=== PATIENT | male | born 1975 | race Caucasian/White ===

== ENCOUNTER 2017-01-12 04:34 | Emergency (ER) | payer OTHER ==
[~2017-01-12] VITALS: Ht 180.3 cm; Wt 70.0 kg
[~2017-01-12 04:34] MED LIST: BUPR300T36 PO; CHLO25CA9 PO; FLUO40CA PO; LAMO25TA PO; QUET200T27 PO; TRAZ150T65 PO
[2017-01-12 04:40] VITALS: Ht 180.3 cm; Wt 70.0 kg
--- NOTE | 2017-01-12 04:48 | ERA ---
ER Documentation Chief Complaint Date/Time DATE: 01/12/17 TIME: 04:48 Chief Complaint Not feeling well HPI The patient is a 41-year-old male, presenting to the ER because he is not feeling well after he has been doing amphetamine for the last week. He also had some bad news about his ex- and children. He denies auditory, visual hallucination, homicidal, suicidal ideation. He denies headache, neck pain, chest pain, dyspnea, abdominal pain, vomiting, dysuria, diarrhea, constipation. He smokes and drinks and does illegal drug Past medical history: Bipolar disorder, depression, anxiety, asthma Past surgical history: Right lower extremity, left shoulder ROS All systems reviewed and are negative except as per history of present illness. Medications Home Meds Reported Medications Chlordiazepoxide* (Chlordiazepoxide*) 25 Mg Capsule, 50 MG PO Q6 Y for CONTROL WITHDRAWAL SYMPTOMS, CAP 07/11/16 Trazodone Hcl* (Trazodone Hcl*) 150 Mg Tablet, 150 MG PO QHS, #30 TAB 07/10/16 Quetiapine Fumarate* (Quetiapine Fumarate*) 200 Mg Tablet, 200 MG PO HS, TAB 07/10/16 Fluoxetine Hcl* (Fluoxetine Hcl*) 40 Mg Capsule, 40 MG PO DAILY, CAP 07/10/16 Lamotrigine* (Lamotrigine*) 25 Mg Tablet, 25 MG PO QID, TAB 07/10/16 Bupropion Hcl* (Bupropion XL*) 300 Mg Tab.sr.24h, 300 MG PO DAILY, TAB.SA 07/10/16 Allergies Allergies: Coded Allergies: No Known Allergy (Unverified , 07/10/16) PMhx/Soc History of Surgery: Yes (RLE fracture repair ) Anesthesia Reaction: No Hx Neurological Disorder: No Hx Respiratory Disorders: No Hx Cardiac Disorders: No Hx Psychiatric Problems: Yes (hx bipolar/depression/anxiety) Hx Miscellaneous Medical Probl: No Hx Alcohol Use: Yes (last drink approx 12 hours ago) Hx Substance Use: No Hx Tobacco Use: Yes Physical Exam Vitals Vital Signs Date Time Temp Pulse Resp B/P Pulse Ox O2 Delivery O2 Flow Rate FiO2 01/12/17 05:09 94 20 95 21 01/12/17 04:52 98.1 112 22 119/89 95 Room Air 01/12/17 04:40 97.3 105 18 124/77 96 Physical Exam Const: No acute distress. Head: Atraumatic. Eyes: Normal Conjunctiva. ENT: Normal External Ears, Nose and Mouth. Neck: Full range of motion. No meningismus. Resp: Mild expiratory wheezes Cardio: Regular rate and rhythm, no murmurs. Abd: Soft, non distended, normal bowel sounds, non tender. Skin: No petechiae or rashes. Back: No midline or flank tenderness. Ext: No cyanosis, or edema. Neur: Awake and alert. No focal deficit Psych: Normal Mood and Affect. Results 24 hrs Current Medications Medications (Trade) Dose Ordered Sig/Grisel Route PRN Reason Start Time Stop Time Status Last Admin Dose Admin Levalbuterol (Xopenex Neb) 1.25 mg ONCE ONCE N 01/12/17 05:00 01/12/17 05:01 DC 01/12/17 05:08 Ipratropium [place] (Atrovent 0.02% (Neb)) 0.5 mg ONCE ONCE N 01/12/17 05:00 01/12/17 05:01 DC 01/12/17 05:08 Lorazepam (Ativan) 1 mg ONCE ONCE PO 01/12/17 05:00 01/12/17 05:01 DC 01/12/17 05:01 Procedures/MDM MEDICAL MAKING DECISION: The patient is a 41-year-old male, presenting with acute bronchospasm, acute amphetamine abuse. He was treated with Xopenex 1.25 mg and Atrovent 0.5 mg nebulized and Ativan 1 mg p.o. with good response. The differential diagnoses considered include but are not limited to pneumonia, substance abuse, anxiety attack, panic attack, decompensated psychiatric illness Departure Diagnosis: Primary Impression: Substance abuse Additional Impression: Bronchospasm NEVILLE RODRIGUEZ MD Jan 12, 2017 04:48
[2017-01-12 04:52] VITALS: TEMP 98.1
[2017-01-12 05:00] VITALS: BP 131/90; PULSE 104; RESP 18
[2017-01-12] MEDS ORDERED: IPRATROPIUM (NEB) 0.5 MG/2.5 ML AMP HHN ONE (05:00)
[2017-01-12] MEDS ORDERED: LEVALBUTEROL (NEB) 1.25 MG/0.5 ML AMP HHN ONE (05:00)
[2017-01-12] MEDS ORDERED: LORAZEPAM 1 MG TAB PO ONE (05:00)
[2017-01-12] MEDS ORDERED: HYDR-845 PO (05:33)
--- NOTE | 2017-01-12 05:34 | RADRPT ---
PROCEDURE: CHEST - 1 VIEW CLINICAL INDICATION: 41-year-old male with cough. TECHNIQUE: A single frontal semi-upright view of the chest was performed portably. The images wer e reviewed on a PACS workstation. COMPARISON: None. FINDINGS: The cardiomediastinal silhouette has a normal appearance. There is no evidence for an infiltrate. There is no evidence for congestive heart failure. There is no evidence for pneumothorax. The osseou s structures are intact. IMPRESSION: No evidence for active cardiopulmonary disease. .Nirav Oliva MD, MD Date Time Electronically viewed and signed by .Nirav Oliva MD, on 01/12/2017 05:34 .M/
== END 2017-01-12 05:46 | disposition home or self-care (01) ==
LOC: E/R 04:34
DX: F15.10 Other stimulant abuse, uncomplicated (principal); J98.01 Acute bronchospasm; Z87.891 Personal history of nicotine dependence
CPT/HCPCS: 71010; 94664; Z7502; Z7610; 99283

== ENCOUNTER 2017-08-21 01:55 | Emergency (ER) | payer OTHER ==
[~2017-08-21] VITALS: Ht 180.3 cm; Wt 70.4 kg
[~2017-08-21 01:55] MED LIST changes: +HYDR-845 PO
[2017-08-21 01:59] VITALS: Ht 180.3 cm; Wt 70.4 kg
--- NOTE | 2017-08-21 03:00 | RADRPT ---
PROCEDURE: XR Foot Bilateral. CLINICAL INDICATION: foot pain TECHNIQUE: AP, lateral and oblique views of the bilateral feet were obtained. The images were rev iewed on a PACS workstation. COMPARISON: None. FINDINGS: Left foot: The bones of the foot appear intact, with no evidence of fracture, dislocation, or subluxation. The joint spaces are preserved. Bone mineralization is normal. No significant soft tissue swelling is seen. There is a small inferior calcaneal spur. Right foot: Intramedullary jose luis is seen in the tibia. The bones of the foot appear intact, with no evidence of fracture, dislocation, or subluxation. The joint spaces are preserved. Bone mineralization is normal. No significant soft tissue swelling is seen. IMPRESSION: No acute osseous abnormality. Small left plantar calcaneal spur. Physician Bre Date Time Electronically viewed and signed by Physician Bre on 08/21/2017 03:00 /
--- NOTE | 2017-08-21 03:03 | ERD ---
ER Documentation Chief Complaint Chief Complaint pain bilat feet HPI 42-year-old male presents here to emergency department for complaints of bilateral foot pain, patient walks a lot, has been having blisters in both feet. Patient's complaint of pain, now is complaining of pain in the left heel. Patient described the pain as throbbing pain, 6/10 scale, as was upon walking. Patient denies any fever chills. Patient denies any direct trauma in affected area. ROS All systems reviewed and are negative except as per history of present illness. Medications Home Meds Active Scripts Hydroxyzine Hcl* (Atarax*) 50 Mg Tab, 50 MG PO TID for ANXIETY, #14 TAB Prov:NEVILLE RODRIGUEZ MD 01/12/17 Reported Medications Chlordiazepoxide* (Chlordiazepoxide*) 25 Mg Capsule, 50 MG PO Q6 Y for CONTROL WITHDRAWAL SYMPTOMS, CAP 07/11/16 Trazodone Hcl* (Trazodone Hcl*) 150 Mg Tablet, 150 MG PO QHS, #30 TAB 07/10/16 Quetiapine Fumarate* (Quetiapine Fumarate*) 200 Mg Tablet, 200 MG PO HS, TAB 07/10/16 Fluoxetine Hcl* (Fluoxetine Hcl*) 40 Mg Capsule, 40 MG PO DAILY, CAP 07/10/16 Lamotrigine* (Lamotrigine*) 25 Mg Tablet, 25 MG PO QID, TAB 07/10/16 Bupropion Hcl* (Bupropion XL*) 300 Mg Tab.sr.24h, 300 MG PO DAILY, TAB.SA 07/10/16 Allergies Allergies: Coded Allergies: No Known Allergy (Unverified , 07/10/16) PMhx/Soc History of Surgery: Yes (RLE fracture repair ) Anesthesia Reaction: No Hx Neurological Disorder: No Hx Respiratory Disorders: No Hx Cardiac Disorders: No Hx Psychiatric Problems: Yes (hx bipolar/depression/anxiety) Hx Miscellaneous Medical Probl: No Hx Alcohol Use: Yes (last drink approx 12 hours ago) Hx Substance Use: No Hx Tobacco Use: Yes Smoking Status: Current every day smoker FmHx Family History: No coronary disease, No diabetes, No other Physical Exam Vitals Vital Signs Date Time Temp Pulse Resp B/P Pulse Ox O2 Delivery O2 Flow Rate FiO2 08/21/17 01:59 97.3 102 18 128/84 97 Physical Exam GENERAL: The patient is well developed and appropriate for usual state of health, in no apparent distress. CHEST: Clear to auscultation bilaterally. There are no rales, wheezes or rhonchi. HEART: Regular rate and rhythm. No murmurs, clicks, rubs or gallops. No S3 or S4. ABDOMEN: Soft, nontender and nondistended. Good bowel sounds. No rebound or guarding. No gross peritonitis. No gross organomegaly or masses. No Spencer sign or McBurney point tenderness. BACK: No midline or flank tenderness. EXTREMITIES: Noted blisters in bilateral foot, no swelling noted no deformity noted, able to do full range of motion with the joints without any restriction. Equal pulses bilaterally. There is no peripheral clubbing, cyanosis or edema. No focal swelling or erythema. Full range of motion. Grossly neurovascularly intact. NEURO: Alert and oriented. Cranial nerves 2-12 intact. Motor strength in all 4 extremities with 5/5 strength. Sensation grossly intact. Normal speech and gait. SKIN: There is no apparent rash or petechia. The skin is warm and dry. HEMATOLOGIC AND LYMPHATIC: There is no evidence of excessive bruising or lymphedema. No gross cervical, axillary, or inguinal lymphadenopathy. Results 24 hrs PROCEDURE: XR Foot Bilateral. CLINICAL INDICATION: foot pain TECHNIQUE: AP, lateral and oblique views of the bilateral feet were obtained. The images were reviewed on a PACS workstation. COMPARISON: None. FINDINGS: Left foot: The bones of the foot appear intact, with no evidence of fracture, dislocation, or subluxation. The joint spaces are preserved. Bone mineralization is normal. No significant soft tissue swelling is seen. There is a small inferior calcaneal spur. Right foot: Intramedullary jose luis is seen in the tibia. The bones of the foot appear intact, with no evidence of fracture, dislocation, or subluxation. The joint spaces are preserved. Bone mineralization is normal. No significant soft tissue swelling is seen. IMPRESSION: No acute osseous abnormality. Small left plantar calcaneal spur. Physician Bre Date Time Electronically viewed and signed by Physician Bre on 08/21/2017 03: 00 CS/ CC: BEATA DIEHL NP Procedures/MDM Medical decision making: Patient symptoms was likely is consistent with foot pain caused by possible overuse, patient also has a left heel calcaneal spur that may be worsening the pain, also has blisters of the foot from walking too much. Patient does not have any symptoms of any septic arthritis, no symptoms of any fractures. No deformity is noted. No symptoms of any neurovascular compromise. Prescription was given for ibuprofen, tramadol, is advised to follow-up with primary care doctor in 2-3 days for reevaluation of symptoms, rest the foot, patient was advised to return to emergency department for any worsening symptoms. Disposition: Home. Stable. Departure Diagnosis: Primary Impression: Foot pain Laterality: bilateral Qualified Code: M79.671 - Pain in both feet Additional Impressions: Blister of foot Encounter type: initial encounter Laterality: unspecified laterality Qualified Code: S90.829A - Blister of foot, unspecified laterality, initial encounter Calcaneal spur of left foot Condition: Stable Patient Instructions: Blister, Heel Spur BEATA DIEHL NP Aug 21, 2017 03:03
[2017-08-21] MEDS ORDERED: TRAM50TA2 PO (03:17)
[2017-08-21] MEDS ORDERED: IBUP-1542 PO (03:17)
== END 2017-08-21 03:50 | disposition home or self-care (01) ==
LOC: FTE 01:55
DX: M77.32 Calcaneal spur, left foot (principal); R23.8 Other skin changes; F17.210 Nicotine dependence, cigarettes, uncomplicated; M79.671 Pain in right foot
CPT/HCPCS: 73630; Z7502

== ENCOUNTER 2017-09-01 00:14 | Emergency (ER) | payer OTHER ==
[~2017-09-01] VITALS: Ht 180.3 cm; Wt 70.4 kg
[~2017-09-01 00:14] MED LIST changes: +IBUP-1542 PO; +TRAM50TA2 PO
[2017-09-01 00:24] VITALS: Ht 180.3 cm; Wt 70.4 kg
[2017-09-01] MEDS ORDERED: SOD CHLORIDE 0.9% 1,000 ML IV STA (01:23)
[2017-09-01] MEDS ORDERED: IBUP-1542 PO (02:05)
[2017-09-01 02:24] LABS: BASOPHIL # 0.1 10^3/ul (0.0-0.1); BASOPHILS % 1.8 % (0.0-2.0); EOSINOPHILS # 0.1 10^3/ul (0.0-0.5); EOSINOPHILS % 3.3 % (0.0-7.0); HEMATOCRIT 35.5 % (42.0-52.0); HEMOGLOBIN 12.6 g/dl (14.0-18.0); LYMPHOCYTES # 1.2 10^3/ul (0.8-2.9); LYMPHOCYTES % 35.2 % (15.0-51.0); MEAN CORPUSCULAR HEMOGLOBIN 34.5 pg (29.0-33.0); MEAN CORPUSCULAR HGB CONC 35.5 g/dl (32.0-37.0); MEAN CORPUSCULAR VOLUME 97.3 fl (82.0-101.0); MEAN PLATELET VOLUME 8.9 fl (7.4-10.4); MONOCYTE # 0.4 10^3/ul (0.3-0.9); MONOCYTES % 11.3 % (0.0-11.0); NEUTROPHIL # 1.6 10^3/ul (1.6-7.5); NEUTROPHILS % 48.1 % (39.0-77.0); PLATELET COUNT 258 10^3/UL (140-415); RED BLOOD COUNT 3.65 10^6/ul (4.70-6.10); RED CELL DISTRIBUTION WIDTH 13.2 % (11.5-14.5); WHITE BLOOD COUNT 3.4 10^3/ul (4.8-10.8)
[2017-09-01 02:39] LABS: ALBUMIN 4.3 g/dl (3.3-4.9); ALBUMIN/GLOBULIN RATIO 1.65; BILIRUBIN,INDIRECT 0.7 mg/dl (0-1.1); BILIRUBIN,TOTAL 0.7 mg/dl (0.2-1.3); CALCIUM 8.7 mg/dl (8.4-10.2); CREATININE 0.94 mg/dl (0.61-1.24); POTASSIUM 3.9 mmol/L (3.5-5.1); TOTAL PROTEIN 6.9 g/dl (6.1-8.1)
[2017-09-01] MEDS ORDERED: OXYCODONE/ACETAMINOPHEN (5/325) TAB PO ONE (03:00)
--- NOTE | 2017-09-01 03:04 | ERD ---
ER Documentation Chief Complaint Chief Complaint fatigue,dizzy,&nauseous x 2-3 days,(+)ETOH odor HPI 42-year-old homeless man presents with "not feeling well" he denies pain but states he feels weak as well as not feeling well. Symptoms are vague but denies chest pain or shortness of breath, no fevers or chills, no vomiting or diarrhea. Later while here he did complain of left lower leg pain and requested analgesics. She denies suicidal or homicidal ideation. ROS All systems reviewed and are negative except as per history of present illness. Medications Home Meds Active Scripts Ibuprofen* (Ibuprofen*) 600 Mg Tablet, 600 MG PO Q8 for PAIN AND/OR INFLAMMATION , #30 TAB Prov:MICHELLE JEAN-BAPTISTE MD 09/01/17 Tramadol HCl (Tramadol HCl) 50 Mg Tablet, 50 MG PO Q6, #20 TAB Prov:BEATA DIEHL NP 08/21/17 Ibuprofen* (Motrin*) 600 Mg Tab, 600 MG PO Q6H Y for PAIN AND OR ELEVATED TEMP, #30 TAB Prov:BEATA DIEHL NP 08/21/17 Hydroxyzine Hcl* (Atarax*) 50 Mg Tab, 50 MG PO TID for ANXIETY, #14 TAB Prov:NEVILLE RODRIGUEZ MD 01/12/17 Reported Medications Chlordiazepoxide* (Chlordiazepoxide*) 25 Mg Capsule, 50 MG PO Q6 Y for CONTROL WITHDRAWAL SYMPTOMS, CAP 07/11/16 Trazodone Hcl* (Trazodone Hcl*) 150 Mg Tablet, 150 MG PO QHS, #30 TAB 07/10/16 Quetiapine Fumarate* (Quetiapine Fumarate*) 200 Mg Tablet, 200 MG PO HS, TAB 07/10/16 Fluoxetine Hcl* (Fluoxetine Hcl*) 40 Mg Capsule, 40 MG PO DAILY, CAP 07/10/16 Lamotrigine* (Lamotrigine*) 25 Mg Tablet, 25 MG PO QID, TAB 07/10/16 Bupropion Hcl* (Bupropion XL*) 300 Mg Tab.sr.24h, 300 MG PO DAILY, TAB.SA 07/10/16 Allergies Allergies: Coded Allergies: No Known Allergy (Unverified , 07/10/16) PMhx/Soc Psychiatric illness History of Surgery: Yes (R. leg surgery - [place] 2006, L. Shoulder surgery 2006) Anesthesia Reaction: No Hx Neurological Disorder: No (denies) Hx Respiratory Disorders: Yes (asthma) Hx Cardiac Disorders: No (denies) Hx Psychiatric Problems: Yes (depression) Hx Miscellaneous Medical Probl: No Hx Alcohol Use: Yes (+/- 1pint harpreet / Vodka / day. Saturday08/31/17) Hx Substance Use: No (denies) Hx Tobacco Use: Yes (1pp week . smoked 2 hr ago) Smoking Status: Current every day smoker FmHx Family History: No diabetes Physical Exam Vitals Vital Signs Date Time Temp Pulse Resp B/P Pulse Ox O2 Delivery O2 Flow Rate FiO2 09/01/17 02:00 98.2 76 16 114/72 95 Room Air 09/01/17 00:24 97.0 92 20 122/72 95 Physical Exam GENERAL: Well-developed, well-nourished, well-hydrated, in no apparent distress , looks nontoxic in appearance HEENT: Moist mucous membranes, pink conjunctiva, no cervical spine tenderness or step-off deformities, no goiter, no jaundice or icterus, extraocular movements intact without pain. No submandibular induration, and no pharyngeal erythema NEURO: Alert and oriented 3, cranial nerves II through XII intact bilaterally, pupils equal round reactive to light, no focal deficits or facial asymmetry, sensation intact distally Strength 5/5 in upper and lower extremities bilaterally CARDIAC: Regular rate and rhythm, no murmurs rubs or gallops LUNGS: Clear bilaterally no wheezing crackles or stridor ABDOMEN: Soft nontender, no guarding, no rigidity, no rebound, no psoas sign no obturator sign. Normoactive bowel sounds SKIN: Warm and dry to touch, no abrasions, contusions, or hematomas, no lacerations, no ecchymosis, no target lesions, and without ulcers EXTREMITIES: No clubbing cyanosis or edema, calves are bilaterally symmetrical, no Homans sign, no popliteal cord sign. Distal pulses equal and bilateral PSYCH: Normal affect without agitation or irritability Result Diagram: 09/01/17 01409/01/17144 Results 24 hrs Laboratory Tests Test 09/01/17 01:45 White Blood Count 3.410^3/ul Red Blood Count 3.6510^6/ul Hemoglobin 12.6g/dl Hematocrit 35.5% Mean Corpuscular Volume 97.3fl Mean Corpuscular Hemoglobin 34.5pg Mean Corpuscular Hemoglobin Concent 35.5g/dl Red Cell Distribution Width 13.2% Platelet Count 25718^3/UL Mean Platelet Volume 8.9fl Neutrophils % 48.1% Lymphocytes % 35.2% Monocytes % 11.3% Eosinophils % 3.3% Basophils % 1.8% Nucleated Red Blood Cells % 0.0/100WBC Neutrophils # 1.610^3/ul Lymphocytes # 1.210^3/ul Monocytes # 0.410^3/ul Eosinophils # 0.110^3/ul Basophils # 0.110^3/ul Nucleated Red Blood Cells # 0.010^3/ul Sodium Level 145mmol/L Potassium Level 3.9mmol/L Chloride Level 106mmol/L Carbon Dioxide Level 24mmol/L Anion Gap 19 Blood Urea Nitrogen 15mg/dl Creatinine 0.94mg/dl Glucose Level 58mg/dl Calcium Level 8.7mg/dl Total Bilirubin 0.7mg/dl Direct Bilirubin 0.00mg/dl Indirect Bilirubin 0.7mg/dl Aspartate Amino Transf (AST/SGOT) 56IU/L Alanine Aminotransferase (ALT/SGPT) 33IU/L Alkaline Phosphatase 57IU/L Total Protein 6.9g/dl Albumin 4.3g/dl Globulin 2.60g/dl Albumin/Globulin Ratio 1.65 Lipase 64U/L Current Medications Medications (Trade) Dose Ordered Sig/Grisel Route PRN Reason Start Time Stop Time Status Last Admin Dose Admin Sodium Chloride (NS) 1,000 ml @ 1,000 mls/hr Q1H STAT IV 09/01/17 01:23 09/01/17 02:22 DC 09/01/17 01:23 Oxycodone/ Acetaminophen (Percocet (5/ 325)) 1 tab ONCE ONCE PO 09/01/17 03:00 09/01/17 03:01 UNV Procedures/MDM IV line was established patient was placed on volunteer coordinator rhythm strip revealed a sinus rhythm at about 80 bpm with upright P and T waves. Patient was afebrile I administered 1 L normal saline IV 1 for initial symptoms and later Percocet 1 tablet p.o. for complaints of leg pain. CBC revealed mild leukopenia otherwise unremarkable, electrolytes were normal, liver function tests are normal. Blood sugar was repeated and was normal, and patient was given a full meal tray here. Differential diagnoses considered, included but not limited to acute coronary syndrome, pulmonary embolism, aortic dissection, abdominal aortic aneurysm, sepsis, stroke, meningitis, encephalitis, pneumonia, appendicitis, cholecystitis , bowel obstruction, pyelonephritis, nephrolithiasis, cystitis, as well as metabolic, hematologic, and electrolyte abnormalities. As well as abscess, cellulitis, fractures, and dislocations. Patient feels much better at this time, and vital signs are normal, symptoms have improved. I did give strict instructions to return to the ED if symptoms continue or worsen, patient will otherwise follow-up with primary care physician. Patient understood instructions and agreed to plan. Disclaimer: Inadvertent spelling and grammatical errors are likely due to EHR/ dictation software use and do not reflect on the overall quality of patient care. Also, please note that the electronic time recorded on this note does not necessarily reflect the actual time of the patient encounter. Departure Diagnosis: Primary Impression: Weakness Condition: Good Patient Instructions: Dehydration MICHELLE JEAN-BAPTISTE MD Sep 01, 2017 03:04
[2017-09-01 03:15] VITALS: BP 116/72; PULSE 72; RESP 16; TEMP 97.8
== END 2017-09-01 03:32 | disposition home or self-care (01) ==
LOC: E/R 00:14
DX: R53.1 Weakness (principal); R40.2252 Coma scale, best verbal response, oriented, at arrival to emergency department; J45.909 Unspecified asthma, uncomplicated; F17.210 Nicotine dependence, cigarettes, uncomplicated; R40.2142 Coma scale, eyes open, spontaneous, at arrival to emergency department; R40.2362 Coma scale, best motor response, obeys commands, at arrival to emergency department
CPT/HCPCS: 36415; 80053; 83690; 85025; J7030; Z7502; Z7610